=== PATIENT | female | born 1965 | race Caucasian/White ===

== ENCOUNTER → 2022-07-01 13:14 | Outpatient (BNVA) | payer MEDICAID, SELFPAY | PROVIDERS: Visit Provider Orthopaedic Surgery | DX: M75.02 Adhesive capsulitis of left shoulder (principal) | CPT/HCPCS: 73030 ==

== ENCOUNTER 2022-07-27 11:12 | Inpatient (IN) | payer MEDICAID, SELFPAY ==
[2022-07-27] VITALS (9 sets, daily range): BP systolic 102–123; BP diastolic 65–79; PULSE 75–90; RESP 16–26; TEMP 36.4–37.3; O2SAT 91–99; BMI 28.3
--- NOTE | 2022-07-27 11:23 | XRR_ITS ---
PROCEDURE INFORMATION: Exam: XR Chest Exam date and time: 07/27/2022 11:35 AM Age: 57 years old Clinical indication: Shortness of breath; Additional info: SOB TECHNIQUE: Imaging protocol: Radiologic exam of the chest. Views: 1 view. COMPARISON: No relevant prior studies available. FINDINGS: Lungs: Lungs are clear. Pleural spaces: There is no pleural effusion or pneumothorax. Heart/Mediastinum: Cardiomediastinal contours are unremarkable. Bones/joints: Bones are unremarkable. XR/XR chest 1V portable [id number] IMPRESSION: No acute findings.
--- NOTE | 2022-07-27 11:28 | ED_ITS ---
HPI - Chest Pain General: Chief Complaint: Nausea/Vomiting/Diarrhea Stated Complaint: sob/weak/right arm pain Time Seen by Provider: 07/27/22 11:17 History of Present Illness: 57-year-old female with cough, congestion, myalgias, and mild sore throat for the last 5 days. She states the symptoms have been persistent over the last 5 days. She has also had some burning to aching on her right axilla has been progressive over the same time. She saw her regular physician 3 days ago who prescribed Zofran and told her to drink plenty of fluids for presumed viral infection. She states that since that time the pain in her axilla has progressively increased and radiates around to her back at the same level of posterior axilla. 2 days ago a rash appeared over that area and is particularly tender and she has been unable to get any relief. States that URI symptoms are baseline and have not worsened. She describes chest pain but points this rash as a source of her chest pain without associated shortness of breath, diaphoresis. She states that there is some pain that radiates into her right arm as well. She is associated diarrhea with nausea. Uses restroom 5 or more times per day. Physical Exam Const: COMMON NORMALS: no acute distress, average body habitus, patient oriented x3, no limitations, healthy appearing, alert and well nourished HENMT: COMMON NORMALS: normocephalic, atraumatic, hearing grossly normal bilaterally, external ears normal, EAC's normal, TM's normal bilaterally, Normal external nose present, Normal nasal mucous membranes and turbinates present, moist oral mucous membranes, oropharynx normal, dentition normal and gingiva normal HEAD & SCALP: normocephalic and atraumatic NOSE: Normal external nose present and Normal nasal mucous membranes and turbinates present EXTERNAL EAR: Yes external ears normal EXTERNAL AUDITORY CANAL: EAC's normal TYMPANIC MEMBRANE: TM's normal bilaterally MOUTH: Normal oral and palatal mucosa present and lip normal Eye: COMMON NORMALS: Equal, round and reactive pupils present, EOMs intact bilaterally and conjunctivae normal CONJUNCTIVA: Yes conjunctivae normal PUPIL: Yes Equal, round and reactive pupils present Neck/C-Spine: COMMON NORMALS: full ROM, no lymphadenopathy and no JVD Lymph: LYMPHATIC: no lymphadenopathy noted Chest: COMMONS NORMALS: negative for normal inspection of the chest (Scaling rash present in the mid axillary line, on breast, T4-6 level) Resp: COMMON NORMALS: normal respiratory effort Cardio: COMMON NORMALS: no JVD and regular rhythm RHYTHM: regular rhythm GI: COMMON NORMALS: Normal to inspection, nondistended, normoactive bowel sounds present : COMMON NORMALS: Yes no CVA tenderness BLADDER/KIDNEY EXAM: Yes no CVA tenderness Back/Pelvis: COMMON NORMALS: no CVA tenderness Neuro: COMMON NORMALS: patient oriented x3 SENSORIUM/ORIENTATION: Yes alert Psych: COMMON NORMALS: mental status grossly normal and Normal thought process present THOUGHT PROCESS: Normal thought process present Skin: COMMON NORMALS: negative for no rashes or lesions noted (Scaling rash noted on mid axillary line T4-T6 level ) GENERAL SKIN EXAM: rashes and/or lesions noted (Scaling rash noted on mid axillary line T4-T6 level ) Course Vital Signs: Vital signs: Vital Signs Pulse Rate 90 07/27/22 12:51 Respiratory Rate 16 07/27/22 12:01 Blood Pressure 114/68 07/27/22 12:51 Pulse Oximetry 94 07/27/22 12:51 Oxygen Delivery Me thod 07/27/22 12:51 MDM - Chest Pain Medical Decision Making 57-year-old female with viral symptoms that presented to the emergency department with progression of the viral symptoms and chest pain. Vitals nonactionable although intermittently tachycardic and provided normal saline which reduced trend of heart rate. Social determinants of health include education, [place], and age. Considered superimposed bacterial infection on viral syndrome, ACS, pulmonary embolus, coronavirus, influenza, others. Initial labs returned with elevated creatinine. Repeated CMP which returns with similar values. With creatinine 5.4 and diminished GFR concerning for intrinsic renal pathology with concomitant dehydration. Considered cystatin c but will defer to inpatient team for further evaluation. Patient admitted to the hospitalist for further work-up of the patient's DARSHAN/CKD without baseline. I provided 2 L of normal saline. Dr. Coyne will admit the patient. Dr. Lopez telemetry nephrology consulted for evaluation and treatment this patient given degree of marked creatinine and diminished GFR. Diagnoses: Skin rash (possible herpes zoster), new onset CKD, viral syndrome. Competence of laboratory data pending at time of admission including delta troponin, viral swabs, and urine testing that require follow-up. Medical Records I reviewed the patient's medical records. Lab Data I reviewed the patient's lab results. 07/27/22 11:30 07/27/22 11:30 Radiology Impressions Chest X-Ray 07/27/22 11: IMPRESSION: No acute findings. Laboratory Results WBC 11.6 10^3/uL (4.0-10.0) H 07/27/22 11:30 RBC 4.36 10^6/uL (4.1-5.3) 07/27/22 11:30 Hgb 12.7 g/dL (11.5-15.3) 07/27/22 11:30 Hct 38.1 % (37.0-47.0) 07/27/22 11: MCV 87.4 fl (81-99) 07/27/22 11:30 MCH 29.1 pg (28.0-34.0) 07/27/22 11: MCHC 33.3 g/dL (30.0-36.0) 07/27/22 11:30 RDW 13.5 % (12.1-15.1) 07/27/22 11:30 Plt Count 147 10^3/cmm (130-400) 07/27/22 11: MPV 10.7 fL (7.4-10.4) H 07/27/22 11:30 Neut % (Auto) 92.8 % 07/27/22 11:30 Lymph % (Auto) 2.5 % 07/27/22 11:30 [place] % (Auto) 2.8 % 07/27/22 11:30 Eos % (Auto) 0.0 % 07/27/22 11:30 Baso % (Auto) 0.0 % 07/27/22 11:30 Neut # (Auto) 10.75 10^3/uL (1.8-7.7) H 07/27/22 11:30 Lymph # (Auto) 0.3 10^3/uL (0.8-4.8) L 07/27/22 11:30 [place] # (Auto) 0.3 10^3/uL (0.2-0.9) 07/27/22 11:30 Eos # (Auto) 0.0 10^3/uL (0.0-0.8) 07/27/22 11:30 Baso # (Auto) 0.0 10^3/uL (0.0-0.1) 07/27/22 11:30 Nucleated RBC % (auto) 0 % 07/27/22 11:30 Nucleated RBCs # 0.0 /100WBC 07/27/22 11:30 Sodium 131 mmol/L (136-145) L 07/27/22 12:23 Potassium 3.1 mmol/L (3.5-5.1) L 07/27/22 12:23 Chloride 96 mmol/L (98-107) L 07/27/22 12:23 Carbon Dioxide 17 mmol/L (22-29) L 07/27/22 12:23 Anion Gap 21.1 (5-19) H 07/27/22 12:23 BUN 62 mg/dL (6-20) H 07/27/22 12:23 Creatinine 5.4 mg/dL (0.5-0.9) H 07/27/22 12:23 GFR Calculation 8.1 mL/min (90-130) L 07/27/22 12:23 Glucose 141 mg/dL (65-115) H 07/27/22 12:23 Calculated Osmolality 292 mOsm/kg (285-295) 07/27/22 12:23 Calcium 8.2 mg/dL (8.5-10.5) L 07/27/22 12:23 Total Bilirubin 0.4 mg/dL (0.15-1.2) 07/27/22 12:23 AST 77 U/L (0-32) H 07/27/22 12:23 ALT 51 U/L (0-33) H 07/27/22 12:23 Alkaline Phosphatase 87 U/L (35-105) 07/27/22 12:23 Troponin T Gen 5 ng/L 50 ng/L (0-10) H 07/27/22 11:30 Total Protein 6.3 g/dL (6.6-8.7) L 07/27/22 12:23 Albumin 2.8 g/dL (3.5-5.2) L 07/27/22 12:23 Globulin 3.5 g/dL (1.3-4.6) 07/27/22 12: Lipase 6 U/L (13-60) L 07/27/22 11:30 Discharge Plan Discharge Patient Disposition: Admitted As Inpatient Clinical Impression: Herpes zoster, CKD (chronic kidney disease), Acute viral syndrome Condition: Stable Coding Level of Care Code ED 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
[2022-07-27 11:36] LABS: Hematocrit 38.1 % (37.0-47.0); Hemoglobin 12.7 g/dL (11.5-15.3); Lymphocytes # 0.3 10^3/uL (0.8-4.8); Lymphocytes % 2.5 %; Mean Corpuscular HGB Conc 33.3 g/dL (30.0-36.0); Mean Corpuscular Hemoglobin 29.1 pg (28.0-34.0); Mean Corpuscular Volume 87.4 fl (81-99); Mean Platelet Volume 10.7 fL (7.4-10.4); Monocytes # 0.3 10^3/uL (0.2-0.9); Monocytes % 2.8 %; Neutrophils # 10.75 10^3/uL (1.8-7.7); Neutrophils % 92.8 %; Nucleated Red Blood Cells % 0 %; Platelet Count 147 10^3/cmm (130-400); Red Blood Count 4.36 10^6/uL (4.1-5.3); Red Cell Distribution Width 13.5 % (12.1-15.1); White Blood Count 11.6 10^3/uL (4.0-10.0)
[2022-07-27] MEDS: ondansetron 2 mg/ML SDV 2 mL 4 MG IVP (11:39)
[2022-07-27] MEDS: morphine 4 mg/mL SDV 1 mL IVP (11:39)
--- NOTE | 2022-07-27 11:39 | ECG_ITS ---
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 Measurements Intervals [place] Rate: 73 P: 48 MS: 123 QRS: 37 QRSD: 93 T: 44 QT: 344 QTc: 381 Interpretive Statements SINUS RHYTHM No previous ECG available for comparison Electronically Signed On 07-27-2022 22:35:57 CDT by Rip Herbert M.D. [id number]
[2022-07-27] MEDS: sodium chloride 0.9% 1,000 ML 999 ML IV ×2 (11:54→12:26)
[2022-07-27 12:01] LABS: Alanine Aminotransferase 58 U/L (0-33); Albumin Level 3.4 g/dL (3.5-5.2); Alkaline Phosphatase 111 U/L (35-105); Anion Gap 25.6 (5-19); Aspartate Amino Transferase 87 U/L (0-32); Blood Urea Nitrogen 66 mg/dL (6-20); Calcium 8.8 mg/dL (8.5-10.5); Carbon Dioxide 19 mmol/L (22-29); Chloride 91 mmol/L (98-107); Glomerular Filtration Rate 8.5 mL/min (90-130); Glucose 157 mg/dL (65-115); Lipase 6 U/L (13-60); Osmolality Calculated 296 mOsm/kg (285-295); Potassium 3.6 mmol/L (3.5-5.1); Sodium 132 mmol/L (136-145); Total Bilirubin 0.5 mg/dL (0.15-1.2); Total Protein 7.4 g/dL (6.6-8.7)
[2022-07-27] MEDS: ketorolac 30 mg/mL INJ 15 MG IVP (12:01)
[2022-07-27 12:02] LABS: Troponin T (5th) Once 50 ng/L (0-10)
[2022-07-27 13:04] LABS: Alanine Aminotransferase 51 U/L (0-33); Albumin Level 2.8 g/dL (3.5-5.2); Alkaline Phosphatase 87 U/L (35-105); Anion Gap 21.1 (5-19); Aspartate Amino Transferase 77 U/L (0-32); Blood Urea Nitrogen 62 mg/dL (6-20); Calcium 8.2 mg/dL (8.5-10.5); Carbon Dioxide 17 mmol/L (22-29); Chloride 96 mmol/L (98-107); Globulin 3.5 g/dL (1.3-4.6); Glomerular Filtration Rate 8.1 mL/min (90-130); Glucose 141 mg/dL (65-115); Osmolality Calculated 292 mOsm/kg (285-295); Potassium 3.1 mmol/L (3.5-5.1); Sodium 131 mmol/L (136-145); Total Bilirubin 0.4 mg/dL (0.15-1.2); Total Protein 6.3 g/dL (6.6-8.7)
[2022-07-27 14:09] LABS: Troponin T (5th) Once 40 ng/L (0-10)
[2022-07-27 14:16] LABS: Influenza A by IFA negative (Negative); Influenza B by IFA negative (Negative)
[2022-07-27 14:29] LABS: SARS Covid-2 Antigen negative (Negative)
--- NOTE | 2022-07-27 14:30 | USR_ITS ---
PROCEDURE INFORMATION: Exam: US Retroperitoneal; Complete; Kidneys and Bladder Exam date and time: 07/27/2022 2:52 PM Age: 57 years old Clinical indication: Other: Renal failure; Additional info: Arf TECHNIQUE: Imaging protocol: Real-time ultrasound of the retroperitoneum with image documentation. Complete exam focused on the kidneys and bladder. COMPARISON: No relevant prior studies available. FINDINGS: Right kidney: The right kidney is unremarkable. Cortical thickness and echotexture is normal. There is no hydronephrosis. No visible stones. The right kidney measures 10 cm in length. Left kidney: The left kidney is unremarkable. Cortical thickness and echotexture is normal. There is no hydronephrosis. No visible stones. The left kidney measures 11.4 cm in length. Urinary bladder: The urinary bladder is unremarkable. US/US renal BI* [id number] IMPRESSION: No pathologic findings.
--- NOTE | 2022-07-27 14:30 | XRR_ITS ---
PROCEDURE INFORMATION: Exam: XR Right Shoulder Exam date and time: 07/27/2022 2:45 PM Age: 57 years old Clinical indication: Pain; Shoulder; Right TECHNIQUE: Imaging protocol: Radiologic exam of the right shoulder. Views: 2 or more views. COMPARISON: CR (CHEST, ) 07/27/2022 11:35 AM FINDINGS: Bones/joints: Glenohumeral alignment is normal. Joint space is preserved. No osteophytes. No fracture. The AC joint is unremarkable. Soft tissues: The visible portion of the thorax is unremarkable. XR/XR shoulder RT min 2V* [id number] IMPRESSION: No pathologic findings.
--- NOTE | 2022-07-27 14:32 | ECG_ITS ---
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 Measurements Intervals [place] Rate: 76 P: 66 [place]: 136 QRS: 41 QRSD: 91 T: 48 QT: 362 QTc: 408 Interpretive Statements SINUS RHYTHM Compared to ECG 07/27/2022 11:39:40 No significant changes Electronically Signed On 07-27-2022 22:35:48 CDT by Rip Herbert M.D. [id number]
--- NOTE | 2022-07-27 14:36 | PM.HP ---
Providers/Chief Complaint Chief Complaint: sob/weak/right arm pain History of Present Illness Gudelia Gutierrez is a 57 year old female with a past medical history of hypertension, history of left shoulder adhesive capsulitis, history of Raynaud's disease, who presents to [facility] due to fatigue, malaise, subjective fevers, chills, nausea, poor appetite, diarrhea. Patient tells me that her symptoms started roughly 5 days ago, she has been dealing with a lot of left shoulder plain, and she has been using an anti-inflammatory medication she is not sure that could be meloxicam. She started to develop viral symptoms she feels, sinus congestion, fevers, chills, malaise, poor appetite, with nausea, vomiting, diarrhea. Poor appetite. 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 Reports headache, no blurry vision, does have lightheadedness, has dizziness, no neck pain, no neck stiffness, does report diffuse abdominal pain. She also has a rash under her right breast that is causing significant pain Review of Systems Const: Reports: fever(s), chills, body aches, fatigue, malaise and night sweats Eyes: Denies: change in vision Card: Denies: chest pain Resp: Reports: dyspnea GI: Reports: abdominal pain, nausea, vomiting and diarrhea : Denies: flank pain, difficulty voiding, dysuria, urinary frequency or urinary urgency Musc: Reports: joint pain; Denies: neck pain or back pain Skin/Breast: Reports: rash Neuro: Reports: headache(s) Endo: Denies: polyuria Saqib/Lymph: Denies: easy bruising Medications/Allergies Home Medications Medication Instructions Recorded Confirmed Last Taken Type meloxicam 15 mg tablet 15 mg PO DAILY 07/01/22 07/01/22 Unknown History metoprolol tartrate 50 mg tablet 50 mg PO DAILY 07/27/22 07/27/22 07/26/22 History ondansetron 4 mg disintegrating 4 - 8 mg PO Q8H PRN Nausea 07/27/22 07/27/22 Unknown History tablet Allergies Allergy/AdvReac Type Severity Reaction Status Date / Time No Known Allergies Allergy Verified 07/01/22 13:07 PFSH Acute PFSH: Medical History (Updated 07/27/22 @ 14:44 by Arthur Bennett MD) History of hypertension History of Raynaud's syndrome Surgical History (Updated 07/27/22 @ 14:41 by Arthur Bennett MD) History of History of cholecystectomy Social History (Updated 07/27/22 @ 14:41 by Arthur Bennett MD) Smoking and tobacco status: never smoked Alcohol intake: never Substance/Drug Use: never Vitals/I&O/Wt Last Vital Signs Pulse 80 07/27/22 14:00 Resp 16 07/27/22 12:01 BP 104/68 07/27/22 14:00 Pulse Ox 97 07/27/22 14:00 O2 Del Method 07/27/22 14:00 07/26/22 07/27/22 07/27/22 22:59 06:59 14:59 Intake Total 1999 Balance 1999 Weight last 48 hrs Weight 68.039 kg Physical Exam Const: COMMON NORMALS: no acute distress and patient oriented x3 HENMT: COMMON NORMALS: normocephalic HEAD & SCALP: normocephalic Eye: COMMON NORMALS: Equal, round and reactive pupils present and EOMs intact bilaterally Neck/C-Spine: COMMON NORMALS: no JVD Lymph: LYMPHATIC: no lymphadenopathy noted Chest: OTHER: Right breast, has a rash, macular, dermatomal fashion, measuring 5 x 4 cm, Resp: COMMON NORMALS: normal respiratory effort, No retractions, No use of accessory muscles and clear to auscultation bilaterally AUSCULTATION: clear to auscultation bilaterally Cardio: COMMON NORMALS: regular rate, regular rhythm, S1 normal heart sound present and S2 normal heart sound present RATE: regular rate RHYTHM: regular rhythm HEART SOUNDS: S1 normal heart sound present and S2 normal heart sound present GI: COMMON NORMALS: Normal to inspection, nondistended, normoactive bowel sounds present, Soft to palpation, non-tender, no masses and no bruits PALPATION: Yes Soft to palpation : COMMON NORMALS: Yes no CVA tenderness Extremity: COMMON NORMALS: no calf tenderness and no pedal edema OTHER: Right shoulder examination pain with range of motion Neuro: COMMON NORMALS: patient oriented x3, CN's II-XII intact bilaterally, moves all extremities and no focal motor deficits Psych: COMMON NORMALS: mental status grossly normal Data 07/27/22 11:30 07/27/22 12:23 A&P Assessment and plan (1) Acute viral syndrome: (2) Acute renal failure: (3) Dehydration: (4) Hyponatremia: (5) Hypokalemia: (6) Metabolic acidosis: (7) Transaminitis: (8) NSTEMI (non-ST elevated myocardial infarction): Plan Acute renal failure -Etiology likely multifactorial -From dehydration -Possible viral syndrome -Meloxicam use -Nausea, vomiting, diarrhea Plan -We will do further work-up for renal failure -Renal ultrasound -Nephrology consulted -IV fluids -Monitor urine output, monitor creatinine -Full code -Heparin for DVT prophylaxis Acute viral syndrome -ESR, CRP, Pro-Crescencio -Respiratory viral panel -Sputum cultures -Blood cultures Dehydration IV fluids Hyponatremia IV fluids Hypokalemia, we will replace Metabolic acidosis, IV fluids Transaminitis, monitor Elevated troponins, monitor Shingles-like rash -Right breast -Given her kidney function options are limited -Pain control morphine -Contact precautions -Keep area clean and dry Attestations Medical Necessity Statement*: Patient requires hospital , inpatient, greater than 2 midnights for acute renal failure Coding Level of Care Code Acute Code for [facility] Diagnoses Acute viral syndrome B34.9 Acute renal failure N17.9 Dehydration E86.0 Hyponatremia E87.1 Hypokalemia E87.6 Metabolic acidosis E87.20 Transaminitis R74.01 NSTEMI (non-ST elevated myocardial infarction) I21.4
[2022-07-27] MEDS: pantoprazole 40 mg SDV IVP (15:10)
[2022-07-27] MEDS: sodium chloride 0.9% 1,000 ML 125 ML IV ×2 (15:11→23:07)
[2022-07-27] MEDS: potassium chloride ER 20 mEq Tablet 40 MEQ PO (15:12)
[2022-07-27 15:57] LABS: Erythrocyte Sedimentation Rate 106 mm/hr (0-15)
[2022-07-27 16:21] LABS: Amphetamines Screen Urine Negative (Negative); Barbiturates Screen Urine Negative (Negative); Benzodiazepines Screen Urine Negative (Negative); Cocaine Screen Urine Negative (Negative); Opiate Screen Urine Positive (Negative); PCP Screen Urine Negative (Negative); THC Screen Urine Negative (Negative)
[2022-07-27 16:25] LABS: Troponin(5th) Baseline 39 ng/L (0-10)
[2022-07-27 16:30] LABS: Protein Urine 1+ (Negative); Specific Gravity, Urine 1.015 (1.005-1.030); Urine Appearance Cloudy (CLEAR); Urine Color Yellow (Yellow); pH Urine 5 (5-7)
[2022-07-27 16:31] LABS: Add Urine Microscopic? YES; Amorphous Sediment Urine 1+ /hpf; Bacteria Urine 1+ /hpf; Bilirubin Urine Neg (Negative); Blood Urine 3+ (Negative); Glucose Urine UA Norm (Normal); Ketones Urine 1+ (Negative); Leukocyte Esterase Urine Trace (Negative); Nitrate Urine Negative (Negative); Squamous Epithelial Cell Urine 0-4 /hpf (0-5); Transitional Epi Cells Urine 0-4 /hpf; Urobilinogen Urine Norm (Negative); WBC Urine 0-4 /hpf (0-5)
[2022-07-27 16:32] LABS: Add Urine Culture? No
[2022-07-27 16:40] LABS: NT Pro B Type Natriuretic Pept 5772 pg/mL (0-125); Thyroid Stimulating Hormone 0.22 uIU/mL (0.27-4.20)
[2022-07-27 16:49] LABS: HIV 1 & 2 Antibody Non-Reactive (Non-Reactiv); HIV 1 & 2 Antigen Non-Reactive (Non-Reactiv); Hepatitis A Antibody IgM Non-Reactive (Nonreactive); Hepatitis B Core IgM Non-Reactive (Nonreactive); Hepatitis B Surface Antigen Non-Reactive (Nonreactive); Hepatitis C Virus Antibody Non-Reactive (Nonreactive)
[2022-07-27 16:51] LABS: Acetaminophen 6.4 ug/mL (10-30); Iron 24 ug/dL (37-145); Magnesium 1.7 mg/dL (1.7-2.3)
[2022-07-27 17:16] LABS: Salicylate < 0.3 mg/dL (3-10)
[2022-07-27 17:18] LABS: Creatine Phosphokinase 333 U/L (26-192)
[2022-07-27] MEDS: heparin 5,000 unit/mL INJ 1 mL 5000 UNIT SUBCUT (17:34)
[2022-07-27 17:40] LABS: C Reactive Protein 606.4 mg/L (0.0-4.9)
[2022-07-27 18:30] LABS: Troponin 5 2HR 42.45 ng/L (0-10)
[2022-07-27 18:37] LABS: Troponin 5 2HR Delta 3.45 ABS# (0-10)
[2022-07-27] MEDS: morphine 4 mg/mL SDV 1 mL 1 MG IVP (19:49)
[2022-07-27] MEDS: acetaminophen 325 mg Tablet 650 MG PO (20:48)
[2022-07-27 22:09] LABS: Troponin 5 6HR 41.05 ng/L (0-10)
[2022-07-27 22:17] LABS: Troponin 5 6HR Delta 2.05 ng/L (0-12)
--- NOTE | 2022-07-27 22:34 | PM.CONSULT ---
Providers/Reason For Consult Consulting Physician/Specialty*: kommana/Nephrology Reason for Consult*: DARSHAN Attending Physician: Arthur Bennett MD History of Present Illness History of Present Illness Patient is a 57-year-old female with past medical history of hypertension Raynaud's disease presented to the emergency department complaining of generalized weakness subjective fevers chills nausea decreased p.o intake. Also reported having diarrhea. Lab data was significant for creatinine of 5.4 [place] acidosis with a bicarbonate of 17, potassium was low at 3.1. No prior labs available to compare. Patient was taking meloxicam at home. Denies using any other bhqm-cmh-npatmpy medications Review of Systems Narrative: Negative Medications/Allergies Home Medications Medication Instructions Recorded Confirmed Last Taken Type meloxicam 15 mg tablet 15 mg PO DAILY 07/01/22 07/27/22 07/26/22 History metoprolol tartrate 50 mg tablet 50 mg PO DAILY 07/27/22 07/27/22 07/26/22 History ondansetron 4 mg disintegrating 4 - 8 mg PO Q8H PRN Nausea 07/27/22 07/27/22 Unknown History tablet Allergies Allergy/AdvReac Type Severity Reaction Status Date / Time No Known Allergies Allergy Verified 07/01/22 13:07 Current Medications Generic Name Dose Route Start Last Admin Trade Name Freq PRN Reason Stop Dose Admin Acetaminophen 650 mg 07/27/22 14:30 07/27/22 20:48 Acetaminophen 325 Mg Tablet PO 650 mg Q6H PRN Administration Mild/Mod Pain Or Temp >/= 101 Heparin Sodium (Porcine) 5,000 unit 07/27/22 14:45 07/27/22 17:34 Heparin 5,000 Unit/Ml Inj 1 Ml SUBCUT 5,000 unit Q12H REGGIE Administration Sodium Chloride 1,000 mls @ 125 mls/hr 07/27/22 14:30 07/27/22 15:11 Sodium Chloride 0.9% IV 125 mls/hr .Q8H REGGIE Administration Morphine Sulfate 1 mg 07/27/22 14:33 07/27/22 19:49 Morphine 4 Mg/Ml Sdv 1 Ml IVP 1 mg Q4H PRN Administration SEVERE PAIN Pantoprazole Sodium 40 mg 07/27/22 14:45 07/27/22 15:10 Pantoprazole 40 Mg Sdv IVP 40 mg Q24H REGGIE Administration PFSH Acute PFSH: Medical History (Updated 07/27/22 @ 14:44 by Arthur Bennett MD) History of hypertension History of Raynaud's syndrome Surgical History (Updated 07/27/22 @ 14:41 by Arthur Bennett MD) History of History of cholecystectomy Social History (Updated 07/27/22 @ 14:41 by Arthur Bennett MD) Smoking and tobacco status: never smoked Alcohol intake: never Substance/Drug Use: never Vitals/I&O/Wt Last Vital Signs Temp 99.2 F 07/27/22 20:00 Pulse 83 07/27/22 20:00 Resp 26 H 07/27/22 20:00 BP 102/65 07/27/22 20:00 Pulse Ox 95 07/27/22 20:00 O2 Del Method 07/27/22 20:00 07/27/22 07/27/22 07/27/22 06:59 14:59 22:59 Intake Total 1999 480 / 2480 Balance 1999 480 / 2480 Weight last 48 hrs Weight 73.573 kg Weight 68.039 kg Physical Exam Narrative: Patient is awake alert, no acute distress, on room air, PERRLA, dry mucous membranes, no pedal edema Data 07/27/22 11:30 07/27/22 12:23 Micro: Microbiology 07/27/22 15:43 Blood Culture - Preliminary Blood SPECIMEN COLLECTED 07/27/22 15:32 Blood Culture - Preliminary Blood SPECIMEN COLLECTED A&P Assessment and plan (1) Acute renal failure: Plan 1. Acute kidney injury: Baseline creatinine not known, presented with a creatinine in the 5 range, oliguric and has metabolic acidosis. DARSHAN likely ATN due to hypovolemia. -Agree with IV fluid resuscitation, check urine lites and renal ultrasound Avoid nephrotoxins and IV contrast studies UA showed 1+ protein and 3+ blood, 5-10 RBCs, granular casts Continue to monitor renal function for now, no indication for dialysis If no improvement , with fluid resuscitation, given microscopic hematuria will do serological work-up 2. History of hypertension: Blood pressure on the lower side 3. Metabolic acidosis continue to monitor, can give Bicitra if no improvement 4. Hypokalemia: We will replete Patient evaluated using audiovisual cart. time spent 40 minutes Consult Attestations Medical Necessity Statement: Needs inpatient stay for management of DARSHAN Coding Level of Care Code Acute Code for Chg Fwd Diagnoses Acute renal failure N17.9
[2022-07-27] MEDS: HYDROcodone-acetaminophen 5-325 mg Tablet 1 TAB PO (22:48)
[2022-07-28] VITALS (7 sets, daily range): BP systolic 94–111; BP diastolic 60–75; PULSE 69–119; RESP 16–28; TEMP 36.5–37.2; O2SAT 93–97
[2022-07-28] MEDS: morphine 4 mg/mL SDV 1 mL 2 MG IVP ×3 (00:14→04:39)
[2022-07-28] MEDS: HYDROcodone-acetaminophen 5-325 mg Tablet 1 TAB PO ×2 (02:20→06:55)
[2022-07-28] MEDS: cyclobenzaprine 10 mg Tablet 5 MG PO (02:21)
--- NOTE | 2022-07-28 02:37 | PC.NURSE ---
Pt wanting to leave the facility, because she believes that she is not receiving appropriate care at this time. Discussed care being provided and the likelihood of if pt were to leave the facility w/o receiving proper tx. Explained to the pt that we are treating her pain as were are able d/t her decreased renal and hepatic function. Pt stated that she understood why she had to stay in the hospital, but she needed her pain managed. Reiterated new orders for pain management, along w/lab work needed, and upcoming echo. Pt stated that she wanted her called to come sit with her. Pt's notified that the patient wanted him to come sit w/her. Awaiting husbands arrival and results of lab draw.
[2022-07-28] MEDS: heparin 5,000 unit/mL INJ 1 mL 5000 UNIT SUBCUT (03:06)
--- NOTE | 2022-07-28 04:04 | ECG_ITS ---
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 Measurements Intervals [place] Rate: 65 P: 48 LA: 104 QRS: 31 QRSD: 108 T: 9 QT: 351 QTc: 366 Interpretive Statements SINUS RHYTHM WITH SINUS ARRHYTHMIA WITH SHORT LA INTERVAL Compared to ECG 07/28/2022 01:55:16 Short LA interval now present Ectopic atrial rhythm no longer present Left anterior fascicular block no longer present T-wave abnormality no longer present Possible ischemia no longer present Electronically Signed On 07-28-2022 11:32:15 CDT by Rip Herbert M.D. [id number]
[2022-07-28 05:07] LABS: Basophils % 0.8 %; Hemoglobin 14.5 g/dL (11.5-15.3); Lymphocytes # 0.3 10^3/uL (0.8-4.8); Lymphocytes % 19.4 %; Mean Corpuscular HGB Conc 31.5 g/dL (30.0-36.0); Mean Corpuscular Hemoglobin 28.9 pg (28.0-34.0); Mean Corpuscular Volume 91.6 fl (81-99); Mean Platelet Volume 11.7 fL (7.4-10.4); Monocytes # 0.1 10^3/uL (0.2-0.9); Monocytes % 5.4 %; Neutrophils % 16.3 %; Nucleated Red Blood Cells % 0 %; Platelet Count 196 10^3/cmm (130-400); Red Blood Count 5.02 10^6/uL (4.1-5.3); Red Cell Distribution Width 14.4 % (12.1-15.1); White Blood Count 1.3 10^3/uL (4.0-10.0)
[2022-07-28 05:17] LABS: Neutrophils # 0.21 10^3/uL (1.8-7.7)
[2022-07-28 05:19] LABS: Erythrocyte Sedimentation Rate 62 mm/hr (0-15)
[2022-07-28 05:33] LABS: INR 1.77 (0.8-1.2)
[2022-07-28 05:34] LABS: Partial Thromboplastin Time 39.4 SECONDS (23.9-36.7)
[2022-07-28 05:36] LABS: Troponin(5th) Baseline 40 ng/L (0-10)
[2022-07-28 05:41] LABS: Alanine Aminotransferase 146 U/L (0-33); Albumin Level 2.6 g/dL (3.5-5.2); Alkaline Phosphatase 84 U/L (35-105); Aspartate Amino Transferase 336 U/L (0-32); Blood Urea Nitrogen 67 mg/dL (6-20); Calcium 8.2 mg/dL (8.5-10.5); Chloride 105 mmol/L (98-107); Cholesterol 96 mg/dL (0-200); Globulin 2.5 g/dL (1.3-4.6); Glomerular Filtration Rate 8.5 mL/min (90-130); Glucose 114 mg/dL (65-115); HDL Cholesterol 10 mg/dL (60-100); LDL Cholesterol Calculated 13 mg/dL (50-129); Osmolality Calculated 308 mOsm/kg (285-295); Phosphorus 4.6 mg/dL (2.5-4.5); Sodium 139 mmol/L (136-145); Total Bilirubin 0.4 mg/dL (0.15-1.2); Total Protein 5.1 g/dL (6.6-8.7); Triglycerides 366 mg/dL (0-150); Uric Acid 9.2 mg/dL (2.4-5.7)
[2022-07-28 05:43] LABS: Estmated Average Glucose 105; Hemoglobin A1C 5.3 % (4.0-6.0)
[2022-07-28 05:45] LABS: Free T4 Free Thyroxine 1.14 ng/dL (0.82-1.77)
[2022-07-28 05:54] LABS: C Reactive Protein 616.9 mg/L (0.0-4.9); Carbon Dioxide 9 mmol/L (22-29)
[2022-07-28 05:55] LABS: Anion Gap 28.5 (5-19); Potassium 3.5 mmol/L (3.5-5.1)
[2022-07-28 05:58] LABS: Creatine Phosphokinase 4861 U/L (26-192)
--- NOTE | 2022-07-28 06:06 | W.PM.EVENTAC ---
Event Note Event Note: Patient with complaints of pain throughout the night. Blood pressures were soft. Added hydrocodone and increase morphine dosing. Also added Flexeril. She continues to have lots of pain. Her Raynaud's is more prominent now than usual in terms of her fingertips though she is not complaining of pain there. Laboratory studies this morning show evidence of significant rhabdomyolysis with CK greater than 4000. White count has also dropped significantly to 1.3 with very low neutrophil count. I have added cefepime empirically, change fluids to D5W with 3 A of bicarb, added HIV to various labs that are pending, checking lactic acid and ABG. Still await multiple a.m. labs. I have asked for patient to be moved to a private room. I have spoken with nursing staff as well as patient and her .
[2022-07-28] MEDS: sodium chloride 0.9% 500 ML IV (06:09)
[2022-07-28] MEDS: cefepime 1,000 MG in sodium chloride 0.9% (plus) 50 ML 100 MG IV (06:12)
[2022-07-28 07:28] LABS: Troponin 5 2HR 38.32 ng/L (0-10)
[2022-07-28 07:29] LABS: Troponin 5 2HR Delta -1.68 ABS# (0-10)
[2022-07-28 07:30] LABS: Lactic Sepsis W/Reflex 11.4 mmol/L (0.5-2.2)
--- NOTE | 2022-07-28 07:41 | PM.PN ---
Vitals/I&O/Wt Last Vital Signs Temp 98.9 F 07/28/22 04:00 Pulse 119 H 07/28/22 06:43 Resp 16 07/28/22 04:39 BP 94/60 07/28/22 04:00 Pulse Ox 93 07/28/22 04:00 O2 Del Method 07/28/22 04:00 07/27/22 07/28/22 07/28/22 22:59 06:59 14:59 Intake Total 1180 / 3180 1521.667 / 4701.667 Balance 1180 / 3180 1521.667 / 4701.667 Weight last 48 hrs Weight 73.573 kg Weight 68.039 kg Physical Exam Urinary Catheter Management: Castro: Cath Placed During This Visit: yes Reason for Continuing Indwelling Catheter: Accurate Measurement of Urinary Output in Critically Ill Patients Urinary Catheter Date of Insertion: 07/28/22 Urinary Catheter Time of Insertion: 06:20 Data 07/28/22 04:54 07/28/22 04:54 Micro: Microbiology 07/27/22 15:43 Blood Culture - Preliminary Blood SPECIMEN COLLECTED 07/27/22 15:32 Blood Culture - Preliminary Blood SPECIMEN COLLECTED Coding Level of Care Code Acute Code for Chg Fwd
[2022-07-28 07:46] LABS: Ketone (Acetest) Serum Negative (Negative)
[2022-07-28 07:52] LABS: Alcohol Level < 10 mg/dL (0-10)
--- NOTE | 2022-07-28 08:04 | ECG_ITS ---
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 Measurements Intervals [place] Rate: 68 P: 236 MA: 133 QRS: -88 QRSD: 90 T: -69 QT: 350 QTc: 373 Interpretive Statements ECTOPIC ATRIAL RHYTHM LEFT ANTERIOR FASCICULAR BLOCK [QRS AXIS <= -45, QR IN I, RS IN II] MODERATE T-WAVE ABNORMALITY, CONSIDER INFERIOR ISCHEMIA [-0.1+ mV T-WAVE IN II/aVF] Compared to ECG 07/27/2022 15:26:11 Ectopic atrial rhythm now present Left anterior fascicular block now present T-wave abnormality now present Possible ischemia now present Sinus rhythm no longer present Electronically Signed On 07-28-2022 11:32:26 CDT by Rip Herbert M.D. [id number]
[2022-07-28] MEDS: sodium bicarbonate 150 MEQ in dextrose 5% 1,000 ML 125 MEQ IV (08:41)
[2022-07-28 08:50] LABS: Reflex Lactate Order REFLEX LACTIC ORDERD
[2022-07-28] MEDS: albumin 12.5 gm/50 mL IV IV (09:54)
[2022-07-28] MEDS: doxycycline 100 MG in sodium chloride 0.9% (plus) 100 ML IV (09:54)
--- NOTE | 2022-07-28 11:02 | ED_ITS ---
HPI - General Adult General: Chief complaint: Nausea/Vomiting/Diarrhea Stated complaint: sob/weak/right arm pain Time Seen by Provider: 07/27/22 11:17 History of Present Illness: RAMSES RAMIRES called in the ICU. On my arrival patient was receiving [id number] for ventilation and CPR was in progress. See notes below patient is completely nonresponsive. PFS ED PFSH: Medical History (Updated 07/28/22 @ 11:05 by Radu Harden DO) History of hypertension History of Raynaud's syndrome Surgical History (Updated 07/27/22 @ 14:41 by Arthur Bennett MD) History of History of cholecystectomy Social History (Updated 07/27/22 @ 14:41 by Arthur Bennett MD) Smoking and tobacco status: never smoked Alcohol intake: never Substance/Drug Use: never Procedures Intubation sedative: none Laryngoscope: fiber optic video scope Assist Device Used: fiber optic device ET Tube Size: 8.5 ET Tube Uncuffed: No Tube Secured Depth (cm): 22 Tube Secured Location: teeth Tube Placement Confirmation: visualized tube passing through cords and confirmation by capnometry Patient Tolerated Procedure: well Intubation Complications: none Additional Comments: Patient intubated during first pulse check after arrived during RAMSES RAMIRES. Visualized to the cords a good capnometry. Bilateral rise and fall of the chest. Resuscitative efforts complete continue to see below Course Vital Signs: Vital signs: Vital Signs Temperature 98.9 F 07/28/22 08:00 Pulse Rate 97 07/28/22 08:00 Respiratory Rate 16 07/28/22 04:39 Blood Pressure 94/60 07/28/22 04:00 Pulse Oximetry 93 07/28/22 04:00 Oxygen Delivery Me thod 07/28/22 04:00 MDM - General Adult Medical Decision Making Patient emergently intubated at the request of the hospitalist during a code. Dr. Luciano and Dr. Patel are attending to the patient now. After it intubated left patient coded still running patient is in their care. Today we will confirm placement with chest x-ray if ROSC is achieved. Lab Data 07/28/22 04:54 07/28/22 04:54 Radiology Impressions Chest X-Ray 07/27/22 11:23 IMPRESSION: No acute findings. Renal Ultrasound 07/27/22 14:30 IMPRESSION: No pathologic findings. Shoulder X-Ray 07/27/22 14:30 IMPRESSION: No pathologic findings. Laboratory Results WBC 11.6 10^3/uL (4.0-10.0) H 07/27/22 11:30 RBC 4.36 10^6/uL (4.1-5.3) 07/27/22 11:30 Hgb 12.7 g/dL (11.5-15.3) 07/27/22 11:30 Hct 38.1 % (37.0-47.0) 07/27/22 11:30 MCV 87.4 fl (81-99) 07/27/22 11:30 MCH 29.1 pg (28.0-34.0) 07/27/22 11:30 MCHC 33.3 g/dL (30.0-36.0) 07/27/22 11:30 RDW 13.5 % (12.1-15.1) 07/27/22 11:30 Plt Count 147 10^3/cmm (130-400) 07/27/22 11:30 MPV 10.7 fL (7.4-10.4) H 07/27/22 11:30 Neut % (Auto) 92.8 % 07/27/22 11:30 Lymph % (Auto) 2.5 % 07/27/22 11:30 Coke % (Auto) 2.8 % 07/27/22 11:30 Eos % (Auto) 0.0 % 07/27/22 11:30 Baso % (Auto) 0.0 % 07/27/22 11:30 Neut # (Auto) 10.75 10^3/uL (1.8-7.7) H 07/27/22 11:30 Lymph # (Auto) 0.3 10^3/uL (0.8-4.8) L 07/27/22 11:30 Coke # (Auto) 0.3 10^3/uL (0.2-0.9) 07/27/22 11:30 Eos # (Auto) 0.0 10^3/uL (0.0-0.8) 07/27/22 11:30 Baso # (Auto) 0.0 10^3/uL (0.0-0.1) 07/27/22 11:30 Nucleated RBC % (auto) 0 % 07/27/22 11:30 Nucleated RBCs # 0.0 /100WBC 07/27/22 11:30 ESR 106 mm/hr (0-15) H 07/27/22 11:30 Sodium 131 mmol/L (136-145) L 07/27/22 12:23 Potassium 3.1 mmol/L (3.5-5.1) L 07/27/22 12:23 Chloride 96 mmol/L (98-107) L 07/27/22 12:23 Carbon Dioxide 17 mmol/L (22-29) L 07/27/22 12:23 Anion Gap 21.1 (5-19) H 07/27/22 12:23 BUN 62 mg/dL (6-20) H 07/27/22 12:23 Creatinine 5.4 mg/dL (0.5-0.9) H 07/27/22 12:23 GFR Calculation 8.1 mL/min (90-130) L 07/27/22 12:23 Glucose 141 mg/dL (65-115) H 07/27/22 12:23 Calculated Osmolality 292 mOsm/kg (285-295) 07/27/22 12:23 Calcium 8.2 mg/dL (8.5-10.5) L 07/27/22 12:23 Total Bilirubin 0.4 mg/dL (0.15-1.2) 07/27/22 12:23 AST 77 U/L (0-32) H 07/27/22 12:23 ALT 51 U/L (0-33) H 07/27/22 12:23 Alkaline Phosphatase 87 U/L (35-105) 07/27/22 12:23 Troponin T Gen 5 ng/L 40 ng/L (0-10) H 07/27/22 13:31 Total Protein 6.3 g/dL (6.6-8.7) L 07/27/22 12:23 Albumin 2.8 g/dL (3.5-5.2) L 07/27/22 12:23 Globulin 3.5 g/dL (1.3-4.6) 07/27/22 12:23 Lipase 6 U/L (13-60) L 07/27/22 11:30 Coronavirus 229E (PCR) Cancelled 07/27/22 13:31 Influenza Type A Ag negative (Negative) 07/27/22 13:31 Influenza Type B Ag negative (Negative) 07/27/22 13:31 SARS-CoV-2 (PCR) Cancelled 07/27/22 13:31 SARS-CoV-2 Ag (Rapid) negative (Negative) 07/27/22 13:31 Discharge Plan Discharge Patient Disposition: Admitted As Inpatient Admit Provider: Arthur Bennett Clinical Impression: Cardiopulmonary arrest Condition: Stable Coding Level of Care Code ED Weed Control Inspector for Indra Mcgee
--- NOTE | 2022-07-28 11:40 | PC.OT ---
OT EVALUATION HELD DUE TO CODE CALLED THIS MORNING. WILL ATTEMPT AGAIN AT A LATER TIME
--- NOTE | 2022-07-28 12:14 | PC.NURSE ---
Transfer to Unit/Change in condition 0800 Pt brought to ICU by Med Surg nurses. Pt family at bedside. Pt alert and oriented. Pt placed on continuous monitoring, and zoll pads placed on pt due to her change in condition requiring her to be transferred to ICU. Pt placed on 2L nasal canula, unable to obtain a blood pressure or O2 sat. Pt started on Levophed. MAP after 10 min in 90's. Pt has IV access to Right AC, new IV access started in Left AC and Left upper arm using ultrasound. Upon physical assessment pt mottled to chest with hands very deep blue/purple. Pt complained on having dry mouth and was given ice chips. Medications that were ordered by Dr Magana initiated once pt was was brought to ICU which included, levophed, solu-medrol, NS bolus, calcium gluconate, and sodium bicarb drip. 1047 Pt's heart rate began to lower from the 110's to the 50's. Nursing immediately saw change in the heart rate. By the time pt went asystole, nursing was already at bedside with crash cart in room. 1048 Chest Compressions started. Code blue paged. Pt given a total of 12 pushes of Epi, 1 amp bicarb, and 1 of calcium. Pt intubated by ER doc. Family updated by Dr Magana throughout code. 1122 last pulse check. No ROSC. Family agreed to end code.
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
--- NOTE | 2022-07-28 13:50 | PC.NURSE ---
MTS/ home Pt's mother has [facility] [place] [place] MTS notified by char house supervisor quickly after TOD.
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
--- NOTE | 2022-07-29 02:14 | PC.NURSE ---
Pt released to [facility] per request of the family. [facility] updated and contact information given. home textile machinery sales representative and director notified that pt is still a pending MTS candidate and MTS requests pt not be embalmed until MTS reaches out to them.
[2022-07-29 11:45] LABS: COMPLEMENT COMPONENT C3C 138 mg/dL (83-193); COMPLEMENT COMPONENT C4C 36 mg/dL (15-57)
[2022-07-29 12:50] LABS: Lyme AB Screen <0.90 index
[2022-07-29 15:55] LABS: CENTROMERE B ANTIBODY <1.0 NEG AI (<1.0 NEG); JO-1 ANTIBODY <1.0 NEG AI (<1.0 NEG); RNP ANTIBODY <1.0 NEG AI (<1.0 NEG); SCL-70 ANTIBODY <1.0 NEG AI (<1.0 NEG); SJOGREN'S ANTIBODY (SS-A) <1.0 NEG AI (<1.0 NEG); SM ANTIBODY <1.0 NEG AI (<1.0 NEG); SS-B <1.0 NEG AI (<1.0 NEG)
[2022-07-30 11:19] LABS: ANA SCREEN, IFA POSITIVE (NEGATIVE); ANA TITER 1:40 titer
[2022-07-30 12:20] LABS: COMPLEMENT, TOTAL (CH50) >60 U/mL (31-60)
[2022-07-30 18:39] LABS: THYROID PEROXIDASE ANTIBODIES <1 IU/mL (<9)
[2022-07-31 13:59] LABS: DNA AB (DS) CRITHIDIA,IFA NEGATIVE (NEGATIVE)
[2022-07-31 21:49] LABS: RMSF IGG NOT DETECTED; RMSF IGM NOT DETECTED
[2022-08-01 17:31] LABS: E. Chaffeensis AB IGG <1:64; E. Chaffeensis AB IGM <1:20
== END 2022-07-28 11:22 | disposition expired | DRG 866 ==
LOC: ER 13:38 → MEDSURG 15:20 → ICU 07-28 07:59
PROVIDERS: Hospitalist; Admitting Provider Family Medicine; Emergency Provider General Practice; Visit Provider Internal Medicine
DX: B34.9 Viral infection, unspecified (principal); N17.9 Acute kidney failure, unspecified; E87.20 Acidosis, unspecified; E87.1 Hypo-osmolality and hyponatremia; M62.82 Rhabdomyolysis; I46.9 Cardiac arrest, cause unspecified; N18.9 Chronic kidney disease, unspecified; I11.0 Hypertensive heart disease with heart failure; B02.9 Zoster without complications; I73.00 Raynaud's syndrome without gangrene; M75.02 Adhesive capsulitis of left shoulder; E86.0 Dehydration; E87.6 Hypokalemia; R77.8 Other specified abnormalities of plasma proteins
CPT/HCPCS: 12345; 31500; 36415; 51702; 71045; 73030; 76770; 80053; 80061; 80074; 80306; 80307; 81001; 82009; 82550; 82728; 83036; 83516; 83540; 83605; 83690; 83735; 83880; 84100; 84145; 84439; 84443; 84484; 84550; 85025; 85610; 85651; 85730; 86140; 86160; 86162; 86235; 86255; 86376; 86618; 86666; 86757; 87040; 87081; 87426; 87804; 87806; 93005; 96361; 96372; 96374; 96375; 96376; 99285; C9113; J0692; J1644; J1885; J2270; J2405; J3490; J7030; J7040; J7070; P9047; Q3014